=== PATIENT | male | born 1960 | race Caucasian/White ===

== ENCOUNTER 2017-04-24 14:22 | Emergency (ER) | payer SELFPAY ==
[2012-08-28 13:09] VITALS: BP 130/83
== END 2017-04-24 15:51 | disposition left against medical advice (07) ==
LOC: ED 14:22
DX: Z53.9 Procedure and treatment not carried out, unspecified reason (principal)

== ENCOUNTER 2020-02-09 13:56 | Emergency (ER) | payer OTHER ==
[2020-02-09] MEDS ORDERED: TORAdol 30 mg Injection IM ONE (14:12)
[2020-02-09] MEDS ORDERED: Norflex 60 MG/2 ML IM ONE (14:12)
[2020-02-09 14:15] VITALS: BP 166/88; PULSE 88; O2SAT 99
--- NOTE | 2020-02-09 14:18 | ERPHSYRPT ---
- History of Present Illness Time Seen by Provider: 02/09/20 14:15 Source: patient Exam Limitations: no limitations Physician History: Pain in both side of neck radiation to left side first and now it is toward right side of upper extremity Timing/Duration: yesterday Severity: mild Modifying Factors: Improves With: cold therapy Associated Symptoms: denies symptoms Allergies/Adverse Reactions: No Known Drug Allergies Allergy (Verified 05/04/16 04:00) Home Medications: Hydrocodone/APAP 10/325 mg [[place] 10/325 MG Tablet] 1 tab PO Q6HPRN PRN [History] Loratadine 10 mg [Claritin 10 mg] 10 mg PO DAILY 05/04/16 [History] Omeprazole 20 MG [Prilosec 20 mg] 20 mg PO DAILY 05/04/16 [History] lisinopriL [Lisinopril] 10 mg PO DAILY 05/04/16 [History] Fluticasone Propionate [Flonase NASAL] 16 gm NS .PRN 05/16/16 [History] Omeprazole 40 mg PO DAILY 05/16/16 [History] Hx Tetanus, Diphtheria Vaccination/Date Given: Yes Hx Influenza Vaccination/Date Given: Yes Hx Pneumococcal Vaccination/Date Given: No Travel Risk - International Travel Have you traveled outside of the country in past 3 weeks: No Have you or anyone close to you been diagnosed with or: No Do your reside in a community with a known COVID-19 case?: No - Coronavirus Screening Has patient experienced Coronavirus symptoms: No - Review of Systems Constitutional: No Fever, No Chills Eyes: No Symptoms Ears, Nose, & Throat: No Symptoms Respiratory: No Cough, No Dyspnea Cardiac: No Chest Pain, No Edema, No Syncope Abdominal/Gastrointestinal: No Abdominal Pain, No Nausea, No Vomiting, No Diarrhea Genitourinary Symptoms: No Dysuria Musculoskeletal: Neck Pain, No Back Pain Skin: No Rash Neurological: No Dizziness, No Focal Weakness, No Sensory Changes Psychological: No Symptoms Endocrine: No Symptoms All Other Systems: Reviewed and Negative - Past Medical History Pertinent Past Medical History: Yes Neurological History: No Pertinent History ENT History: No Pertinent History Cardiac History: Hypertension Respiratory History: No Pertinent History Endocrine Medical History: Hypothyroidism Musculoskeletal History: Osteoarthritis GI Medical History: GERD History: Other Psycho-Social History: Anxiety Male Reproductive Disorders: No Pertinent History Other Medical History: Back pain - Past Surgical History Past Surgical History: No Neuro Surgical History: No Pertinent History Cardiac: No Pertinent History Respiratory: No Pertinent History Gastrointestinal: No Pertinent History Genitourinary: No Pertinent History Musculoskeletal: No Pertinent History Male Surgical History: No Pertinent History Other Surgical History: CYST REMVOED FROM HEAD - Social History Smoking Status: Never smoker Exposure to second hand smoke: No Drug Use: none Patient Lives Alone: No - Nursing Vital Signs Nursing Vital Signs: Initial Vital Signs Temperature 98 F 02/09/20 14:02 Pulse Rate 88 02/09/20 14:02 Respiratory Rate 20 02/09/20 14:02 Blood Pressure 166/88 02/09/20 14:02 O2 Sat by Pulse Oximetry 99 02/09/20 14:02 Pain Scale Pain Intensity 8 - Physical Exam General Appearance: no apparent distress, alert Eye Exam: PERRL/EOMI, eyes nml inspection Ears, Nose, Throat Exam: normal ENT inspection, TMs normal, pharynx normal, moist mucous membranes Neck Exam: normal inspection, non-tender, supple, full range of motion Respiratory Exam: normal breath sounds, lungs clear, No respiratory distress Cardiovascular Exam: regular rate/rhythm, normal heart sounds, normal peripheral pulses Gastrointestinal/Abdomen Exam: soft, normal bowel sounds, No tenderness, No mass Back Exam: normal inspection, normal range of motion, muscle spasm (neck area), No CVA tenderness, No vertebral tenderness Extremity Exam: normal inspection, normal range of motion, pelvis stable Neurologic Exam: alert, oriented x 3, cooperative, normal mood/affect, nml cerebellar function, nml station & gait, sensation nml, No motor deficits Skin Exam: normal color, warm, dry, No rash Lymphatic Exam: No adenopathy - Course Nursing assessment & vital signs reviewed: Yes Ordered Tests: Medication Summary Discontinued Medications Generic Name Dose Route Start Last Admin Trade Name Freq PRN Reason Stop Dose Admin Ketorolac Tromethamine 60 mg 02/09/20 14:12 Toradol 30 Mg Injection IM 02/09/20 14:13 STAT ONE Orphenadrine Citrate 60 mg 02/09/20 14:12 Norflex 60 Mg/2 Ml IM 02/09/20 14:13 STAT ONE - Progress Progress: improved, pain not gone completely Counseled pt/family regarding: diagnosis, need for follow-up - Departure Departure Disposition: Home Clinical Impression: Neck muscle strain Qualifiers: Encounter type: initial encounter Qualified Code(s): S16.1XXA - Strain of muscle, fascia and tendon at neck level, initial encounter Condition: Stable Critical Care Time: No Referrals: ANNIKA SNYDER [Primary Care Provider] - Instructions: Cervical Muscle Strain (DC), Generalized Neck Pain (DC) Additional Instructions: Discharge/Care Plan JONNA BOBBY was seen on 02/09/20 in the Emergency Room. The patient was counseled regarding Diagnosis,Lab results, Imaging studies, need for follow up and when to return to the Emergency Room. Prescriptions given: Discharge Note I have spoken with the patient and/or caregivers. I have explained the patient' s condition, diagnosis and treatment plan based on the information available to me at this time. I have answered the patient's and/or caregiver's questions and addressed any concerns. The patient and/or caregivers have as good understanding of the patient's diagnosis, condition and treatment plan as can be expected at this point. The vital signs have been stable. The patient's condition is stable and appropriate for discharge from the emergency department. The patient will pursue further outpatient evaluation with the primary care physician or other designated or consulting physician as outlined in the discharge instructions. The patient and/or caregivers are agreeable to this plan of care and follow-up instructions have been explained in detail. The patient and/or caregivers have received these instruction. The patient/and or caregivers are aware that any significant change in condition or worsening of symptoms should prompt an immediate return to this or the closest emergency department or call 911. Prescriptions: Cyclobenzaprine HCl 10 mg [Flexeril 10 MG] 10 mg PO TID #30 tablet Naproxen 375 mg [Naprosyn 375 mg] 375 mg PO Q8H #30 tablet
[2020-02-09] MEDS ORDERED: Norflex 60 MG/2 ML ONE (14:19)
[2020-02-09] MEDS ORDERED: TORAdol 30 mg Injection ONE (14:19)
== END 2020-02-09 14:51 | disposition home or self-care (01) ==
LOC: ED 13:56
DX: S16.1XXA Strain of muscle, fascia and tendon at neck level, initial encounter (principal); I10 Essential (primary) hypertension; E03.9 Hypothyroidism, unspecified; M19.90 Unspecified osteoarthritis, unspecified site; K21.9 Gastro-esophageal reflux disease without esophagitis
CPT/HCPCS: 96372; 99283; J1885; J2360

== ENCOUNTER 2020-09-12 13:52 | Emergency (ER) | payer OTHER ==
--- NOTE | 2020-09-12 13:56 | ERPHSYRPT ---
- History of Present Illness Time Seen by Provider: 09/12/20 13:56 Source: patient, family Exam Limitations: no limitations Physician History: This is a 60-year-old white male who has a history of osteoarthritis and recurrent back and neck pain. A few days ago, patient states that he nearly fell but did not fall and hit his head or neck but it kirstin his neck. The pain has progressively worsened. Pain was in the left neck area and has now moved and includes the right posterior lateral neck. Heat has helped but is only temporary. Earlier this morning the patient took tramadol and ibuprofen and it did not seem to help him. He also too a 10 mg Flexeril earlier today. Patient denies chest pain, he denies shortness of air and he denies abdominal pain. He does not have a headache and does not have any visual changes. Timing/Duration: day(s) (Few) Method of Injury: near fall (A few days ago) Quality: aching Severity of Pain-Max: moderate Severity of Pain-Current: moderate Modifying Factors: Improves With: movement Associated Symptoms: other (Neck pain), No dizziness, No numbness in legs/feet Previous symptoms: same symptoms as today Allergies/Adverse Reactions: No Known Drug Allergies Allergy (Verified 09/12/20 14:05) Home Medications: Loratadine 10 mg [Claritin 10 mg] 10 mg PO DAILY 05/04/16 [History] Omeprazole 20 MG [Prilosec 20 mg] 20 mg PO DAILY 05/04/16 [History] lisinopriL [Lisinopril] 10 mg PO DAILY 05/04/16 [History] Fluticasone Propionate [Flonase NASAL] 16 gm NS .PRN 05/16/16 [History] Hx Tetanus, Diphtheria Vaccination/Date Given: Yes Hx Influenza Vaccination/Date Given: Yes Hx Pneumococcal Vaccination/Date Given: No Travel Risk - International Travel Have you traveled outside of the country in past 3 weeks: No - Coronavirus Screening Are you exhibiting any of the following symptoms?: No Close contact with a COVID-19 positive Pt in past 14-21 Days: No - Review of Systems Constitutional: No Symptoms Eyes: No Symptoms Ears, Nose, & Throat: No Symptoms Respiratory: No Symptoms Cardiac: No Symptoms Abdominal/Gastrointestinal: No Symptoms Genitourinary Symptoms: No Symptoms Musculoskeletal: Neck Pain Skin: No Symptoms Neurological: No Symptoms Psychological: No Symptoms Endocrine: No Symptoms Hematologic/Lymphatic: No Symptoms Immunological/Allergic: No Symptoms All Other Systems: Reviewed and Negative - Past Medical History Pertinent Past Medical History: Yes Neurological History: No Pertinent History ENT History: No Pertinent History Cardiac History: Hypertension Respiratory History: No Pertinent History Endocrine Medical History: Hypothyroidism Musculoskeletal History: Osteoarthritis GI Medical History: GERD History: Other Psycho-Social History: Anxiety Male Reproductive Disorders: No Pertinent History Other Medical History: Back pain - Past Surgical History Past Surgical History: No Neuro Surgical History: No Pertinent History Cardiac: No Pertinent History Respiratory: No Pertinent History Gastrointestinal: No Pertinent History Genitourinary: No Pertinent History Musculoskeletal: No Pertinent History Male Surgical History: No Pertinent History Other Surgical History: CYST REMVOED FROM HEAD - Social History Smoking Status: Never smoker Exposure to second hand smoke: No Drug Use: none Patient Lives Alone: No - Nursing Vital Signs Nursing Vital Signs: Initial Vital Signs Pulse Rate 99 H 09/12/20 14:09 Respiratory Rate 18 09/12/20 14:09 Blood Pressure 140/95 09/12/20 14:09 O2 Sat by Pulse Oximetry 99 09/12/20 14:09 Pain Scale Pain Intensity 9 - Physical Exam General Appearance: mild distress, alert, anxiety Eye Exam: PERRL/EOMI, eyes nml inspection Ears, Nose, Throat Exam: normal ENT inspection, moist mucous membranes Neck Exam: normal inspection, limited range of motion, other (Bilateral paraspinous muscle tenderness.) Respiratory Exam: airway intact, No chest tenderness, No respiratory distress Gastrointestinal Exam: No tenderness Rectal Exam: No not done Back Exam: normal inspection, normal range of motion, muscle spasm (Neck bilateral paraspinous muscles), No CVA tenderness, No vertebral tenderness Extremity Exam: normal inspection, normal range of motion, pelvis stable Neurologic Exam: alert, oriented x 3, cooperative, 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 Stop your ibuprofen and naproxen. Stop your Flexeril/cyclobenzaprine. Follow-up with your prescribing physician on Monday, September 14 for further management of your pain Prescriptions: Carisoprodol 350 mg [Soma 350 mg] 350 mg PO Q8H PRN PRN #6 tablet PRN Reason: Muscle Spasms Prednisone 10 mg [Deltasone 10 mg] 10 mg PO TID #12 tablet
[2020-09-12] MEDS ORDERED: Phenergan 25 MG INJ IM ONE (14:15)
[2020-09-12] MEDS ORDERED: Hydromorphone 1 mg/ml Injection IM ONE (14:15)
[2020-09-12] MEDS ORDERED: solu-MEDROL 125 MG IM ONE (14:17)
[2020-09-12] MEDS ORDERED: Ativan 2 MG/1 ML VIAL IM ONE (14:18)
[2020-09-12] MEDS ORDERED: Phenergan 25 MG INJ ONE (14:22)
[2020-09-12] MEDS ORDERED: Ativan 2 MG/1 ML VIAL ONE (14:23)
[2020-09-12] MEDS ORDERED: solu-MEDROL 125 MG ONE (14:23)
[2020-09-12] MEDS ORDERED: Hydromorphone 1 mg/ml Injection ONE (14:23)
[2020-09-12 14:24] VITALS: BP 140/95
[2020-09-12 15:01] VITALS: PULSE 82; O2SAT 97
== END 2020-09-12 14:58 | disposition home or self-care (01) ==
LOC: ED 13:52
DX: M62.838 Other muscle spasm (principal); M54.9 Dorsalgia, unspecified; M54.2 Cervicalgia; Z79.899 Other long term (current) drug therapy
CPT/HCPCS: 96372; 99284; J1170; J2060; J2550; J2930

== ENCOUNTER 2022-02-03 02:52 | Emergency (ER) | payer OTHER ==
--- NOTE | 2022-02-03 03:34 | ERPHSYRPT ---
- History of Present Illness Time Seen by Provider: 02/03/22 03:15 Source: patient Exam Limitations: no limitations Patient Subjective Stated Complaint: pt states he has been having pain in his lt hand for last several days. denies any injury Triage Nursing Assessment: pt alert and oreinted, answers questions approp. pt ambulatory with steady gait noted. respirations nonlabored. skin warm and dry. pt restless in bed. cap refill and radial pulse to lt hand wnl. Physician History: Patient is a 61-year-old male presents to emergency department for evaluation of left hand pain. Patient states left hand pain started approximately 3 days ago. Hand pain is gotten progressively worse. Patient states that his pain kept him from sleeping this evening. Pain described as a diffuse ache of the left hand. No obvious trauma. Patient states he has a history of arthritis. Patient states he had similar pain at his right hand which was due to arthritis. Patient states that the hand pain resolved with a steroid injection. Symptoms are progressive. Symptoms are moderate in intensity. Movement palpation to the volar and dorsal aspect of the left wrist reproduce symptoms. Patient voices no complaints or concerns at this time. Occurred: other (Pain started 3 days ago.) Quality: constant Severity of Pain-Max: moderate Severity of Pain-Current: mild Extremities Pain Location: hand: left Modifying Factors: Improves With: movement Associated Symptoms: none Allergies/Adverse Reactions: No Known Drug Allergies Allergy (Verified 02/03/22 03:11) Home Medications: Omeprazole 20 MG [Prilosec 20 mg] 20 mg PO BID 05/04/16 [History] Levothyroxine Sodium [Euthyrox] 25 mcg PO DAILY 02/03/22 [History] Tizanidine HCl 4 mg [Zanaflex 4 MG] 4 mg PO TID 02/03/22 [History] Tramadol HCl 50 mg [Ultram 50 mg] 50 mg PO Q8HPRN PRN 02/03/22 [History] Hx Tetanus, Diphtheria Vaccination/Date Given: Yes Hx Influenza Vaccination/Date Given: No Hx Pneumococcal Vaccination/Date Given: No Immunizations Up to Date: Yes Travel Risk - International Travel Have you traveled outside of the country in past 3 weeks: No - Coronavirus Screening Are you exhibiting any of the following symptoms?: No Close contact with a COVID-19 positive Pt in past 14-21 Days: No - Vaccine Status Have you recieved a Covid-19 vaccination: No - Review of Systems Constitutional: No Symptoms, No Fever, No Chills Eyes: No Symptoms Ears, Nose, & Throat: No Symptoms Respiratory: No Symptoms, No Cough, No Dyspnea Cardiac: No Symptoms, No Chest Pain, No Edema, No Syncope Abdominal/Gastrointestinal: No Symptoms, No Abdominal Pain, No Nausea, No Vomiting, No Diarrhea Genitourinary Symptoms: No Symptoms, No Dysuria Musculoskeletal: No Symptoms, No Back Pain, No Neck Pain Skin: No Symptoms, No Rash Neurological: No Symptoms, No Dizziness, No Focal Weakness, No Sensory Changes Psychological: No Symptoms Endocrine: No Symptoms Hematologic/Lymphatic: No Symptoms Immunological/Allergic: No Symptoms All Other Systems: Reviewed and Negative - Past Medical History Pertinent Past Medical History: Yes Neurological History: No Pertinent History ENT History: No Pertinent History Cardiac History: Hypertension Respiratory History: No Pertinent History Endocrine Medical History: Hypothyroidism Musculoskeletal History: Osteoarthritis GI Medical History: GERD History: Other Psycho-Social History: Anxiety Male Reproductive Disorders: No Pertinent History Other Medical History: Back pain - Past Surgical History Past Surgical History: Yes Neuro Surgical History: No Pertinent History Cardiac: No Pertinent History Respiratory: No Pertinent History Gastrointestinal: Appendectomy Genitourinary: No Pertinent History Musculoskeletal: No Pertinent History Male Surgical History: No Pertinent History Other Surgical History: CYST REMVOED FROM HEAD - Social History Smoking Status: Never smoker Exposure to second hand smoke: Yes Drug Use: none Patient Lives Alone: No - Nursing Vital Signs Nursing Vital Signs: Initial Vital Signs Temperature 98.0 F 02/03/22 03:02 Pulse Rate 79 02/03/22 03:02 Respiratory Rate 18 02/03/22 03:02 Blood Pressure 145/81 02/03/22 03:02 O2 Sat by Pulse Oximetry 99 02/03/22 03:02 Pain Scale Pain Intensity 4 - Physical Exam General Appearance: no apparent distress, alert Eyes, Ears, Nose, Throat Exam: moist mucous membranes Neck Exam: non-tender, supple Cardiovascular/Respiratory Exam: chest non-tender, normal breath sounds, regular rate/rhythm, no respiratory distress Abdominal Exam: non-tender, No guarding Back Exam: normal inspection, No vertebral tenderness Shoulder Exam: normal inspection, non-tender, no evidence of injury, normal ROM Elbow/Forearm Exam: normal inspection, non-tender, no evidence of injury, normal ROM Wrist Exam: limited ROM (Hand and digits appear pale. They are cool to touch versus the contralateral side. Delayed capillary refill.), soft tissue tend erness, swelling Hand Exam: soft tissue tenderness, No normal inspection Neuro/Tendon Exam: normal sensation, normal motor functions, normal tendon fu nctions Mental Status Exam: alert, oriented x 3, cooperative Skin Exam: normal color, warm, dry SpO2 Interpretation: normal SpO2: 99 O2 Delivery: Room Air - Course Nursing assessment & vital signs reviewed: Yes EKG Interpreted by Me: RATE (86), Sinus Rhythm, NORMAL AXIS, NORMAL INTERVALS - Radiology Exams Hand X-ray Interpretation: Interpreted by me (No fractures or dislocations. Arthritic/degenerative changes observed. No soft tissue abnormalities.) - CT Exams Upper Extremity CT Interpretation: Tele-radiologist Report (No proximal arterial occlusion or significant stenosis. Evaluation of distal arterial branches is limited by caliber and venous contamination without obvious occlusion.) Ordered Tests: Active Orders 24 hr Category Date Time Status [employer] STAT Care 02/03/22 03:56 Active EKG-ER Only STAT Care 02/03/22 03:55 Active IV Insertion STAT Care 02/03/22 03:55 Active Pulse Oximetry (ED) STAT Care 02/03/22 03:55 Active CTA UPPER EXTREMITY W/CONTRAST [CT] Stat Exams 02/03/22 04:14 Taken HAND (MINIMUM 3 VIEWS) Stat Exams 02/03/22 04:18 Taken CBC W DIFF Stat Lab 02/03/22 04:16 Completed CK-Creatinine Phosphokinase Stat Lab 02/03/22 04:16 Completed CMP Stat Lab 02/03/22 04:16 Completed TROPONIN Q3H Lab 02/03/22 04:16 Completed TROPONIN Q3H Lab 02/03/22 07:00 Ordered TROPONIN Q3H Lab 02/03/22 10:00 Ordered TROPONIN Q3H Lab 02/03/22 13:00 Ordered TROPONIN Q3H Lab 02/03/22 16:00 Ordered UA W/RFX UR CULTURE Stat Lab 02/03/22 05:18 Completed Medication Summary Discontinued Medications Generic Name Dose Route Start Last Admin Trade Name Freq PRN Reason Stop Dose Admin Morphine Sulfate 4 mg 02/03/22 04:11 02/03/22 04:16 Morphine Sulfate 4 Mg/Ml Injection IV 02/03/22 04:12 4 mg STAT ONE Administration Morphine Sulfate Confirm 02/03/22 04:14 Morphine Sulfate 4 Mg/Ml Injection Administered 02/03/22 04:15 Dose 4 mg .ROUTE .STK-MED ONE Lab/Rad Data: Laboratory Result Diagrams 02/03/22 04:16 02/03/22 04:16 Laboratory Results 02/03/22 02/03/22 02/03/22 Range/Units 05:18 04:16 04:16 WBC (4.0-10.5) K/mm3 RBC (4.1-5.6) M/mm3 Hgb (12.5-18.0) gm/dl Hct (42-50) % MCV (78-100) fl MCH (26-32) pg MCHC (32-36) g/dl RDW (11.5-14.0) % Plt Count (150-450) K/mm3 MPV (7.5-11.0) fl Gran % (36.0-66.0) % Eos # (Auto) (0-0.5) Absolute Lymphs (auto) (1.0-4.6) Absolute Monos (auto) (0.0-1.3) Lymphocytes % (24.0-44.0) % Monocytes % (0.0-12.0) % Eosinophils % (0.00-5.0) % Basophils % (0.0-0.4) % Absolute Granulocytes (1.4-6.9) Basophils # (0-0.4) Sodium 132 L (137-145) mmol/L Potassium 3.8 (3.5-5.1) mmol/L Chloride 101 (98-107) mmol/L Carbon Dioxide 23 (22-30) mmol/L Anion Gap 12.4 (5-15) MEQ/L BUN 9 (9-20) mg/dL Creatinine 0.92 (0.66-1.25) mg/dL Estimated GFR > 60.0 ML/MIN Glucose 146 H (74-106) mg/dL Calcium 9.1 (8.4-10.2) mg/dL Total Bilirubin 0.60 (0.2-1.3) mg/dL AST 22 (17-59) U/L ALT 18 (0-50) U/L Alkaline Phosphatase 99 (38-126) U/L Creatine Kinase 72 (55-170) U/L Troponin I < 0.012 (0.000-0.034) ng/mL Serum Total Protein 6.7 (6.3-8.2) g/dL Albumin 3.9 (3.5-5.0) g/dL Urine Color YELLOW (YELLOW) Urine Appearance CLEAR (CLEAR) Urine pH 5.0 (5-6) Ur Specific [place] 1.027 (1.005-1.025) Urine Protein NEGATIVE (Negative) Urine Ketones NEGATIVE (NEGATIVE) Urine Blood NEGATIVE (0-5) Connor/ul Urine Nitrite NEGATIVE (NEGATIVE) Urine Bilirubin NEGATIVE (NEGATIVE) Urine Urobilinogen NEGATIVE (0-1) mg/dL Ur Leukocyte Esterase NEGATIVE (NEGATIVE) Urine WBC (Auto) NONE (0-5) /HPF Urine RBC (Auto) NONE (0-2) /HPF U Epithel Cells (Auto) NONE (FEW) /HPF Urine Bacteria (Auto) NONE SEEN (NEGATIVE) /HPF Urine Mucus (Auto) SLIGHT (NEGATIVE) /HPF Urine Culture Reflexed NO (NO) Urine Glucose NEGATIVE (NEGATIVE) mg/dL 02/03/22 Range/Units 04:16 WBC 8.7 (4.0-10.5) K/mm3 RBC 4.72 (4.1-5.6) M/mm3 Hgb 13.9 (12.5-18.0) gm/dl Hct 41.4 L (42-50) % MCV 87.7 (78-100) fl MCH 29.4 (26-32) pg MCHC 33.6 (32-36) g/dl RDW 13.2 (11.5-14.0) % Plt Count 211 (150-450) K/mm3 MPV 10.0 (7.5-11.0) fl Gran % 69.3 H (36.0-66.0) % Eos # (Auto) 0.30 (0-0.5) Absolute Lymphs (auto) 1.71 (1.0-4.6) Absolute Monos (auto) 0.65 (0.0-1.3) Lymphocytes % 19.6 L (24.0-44.0) % Monocytes % 7.5 (0.0-12.0) % Eosinophils % 3.4 (0.00-5.0) % Basophils % 0.2 (0.0-0.4) % Absolute Granulocytes 6.03 (1.4-6.9) Basophils # 0.02 (0-0.4) Sodium (137-145) mmol/L Potassium (3.5-5.1) mmol/L Chloride (98-107) mmol/L Carbon Dioxide (22-30) mmol/L Anion Gap (5-15) MEQ/L BUN (9-20) mg/dL Creatinine (0.66-1.25) mg/dL Estimated GFR ML/MIN Glucose (74-106) mg/dL Calcium (8.4-10.2) mg/dL Total Bilirubin (0.2-1.3) mg/dL AST (17-59) U/L ALT (0-50) U/L Alkaline Phosphatase (38-126) U/L Creatine Kinase (55-170) U/L Troponin I (0.000-0.034) ng/mL Serum Total Protein (6.3-8.2) g/dL Albumin (3.5-5.0) g/dL Urine Color (YELLOW) Urine Appearance (CLEAR) Urine pH (5-6) Ur Specific [place] (1.005-1.025) Urine Protein (Negative) Urine Ketones (NEGATIVE) Urine Blood (0-5) Connor/ul Urine Nitrite (NEGATIVE) Urine Bilirubin (NEGATIVE) Urine Urobilinogen (0-1) mg/dL Ur Leukocyte Esterase (NEGATIVE) Urine WBC (Auto) (0-5) /HPF Urine RBC (Auto) (0-2) /HPF U Epithel Cells (Auto) (FEW) /HPF Urine Bacteria (Auto) (NEGATIVE) /HPF Urine Mucus (Auto) (NEGATIVE) /HPF Urine Culture Reflexed (NO) Urine Glucose (NEGATIVE) mg/dL - Progress Progress: improved Progress Note: Case discussed with Dr. [facility] who adv[facility] a CT angio of the upper extremity to determine there is circulation compromise of the upper extremity versus a lesion distal in the hand. It is unclear whether or not this will require hand surgery versus vascular. Labs pending. CTA ordered. 02/03/22 04:12 CTA of the upper extremity from the aortic arch to the distal upper extremity does not reveal any significant stenosis or occlusion. Per If no occlusion is found the case would be hand as opposed to vascular. We spoke to Dr. Sánchez hand surgeon at [facility] who agrees that the pathology is likely in the realm of the hand versus proximal vasculature. Dr. Sánchez accepted transfer to [facility] ED. Dr. Sánchez will see/evaluate patient this morning. 02/03/22 05:[address] Pressley emergency physician at [facility] who accepts transfer on Dr. Sánchez behalf. Plan of care discussed with patient. He agrees to transfer to [facility] ED for further evaluation and treatment. Portions of this note were created with voice recognition technology. There may be grammatical, spelling, punctuation or sound alike errors 02/03/22 06:08 Counseled pt/family regarding: lab results, diagnosis, rad results - Departure Departure Disposition: Transfer Clinical Impression: Circulatory compromise of hand, Wrist pain Condition: Stable Critical Care Time: No Referrals: ANNIKA SNYDER [Primary Care Provider] - Follow up/PCP as directed
[2022-02-03] MEDS ORDERED: MORPHINE SULFATE 4 MG INJ IV ONE (04:11)
[2022-02-03] MEDS ORDERED: MORPHINE SULFATE 4 MG INJ ONE (04:14)
[2022-02-03 04:21] LABS: Absolute Neutrophil Ct (ANC) 6.03 (1.4-6.9); Basophil (Absolute #) 0.02 (0-0.4); Eosinophil % 3.4 % (0.00-5.0); Hematocrit 41.4 % (42-50); Hemoglobin 13.9 gm/dl (12.5-18.0); Lymphocyte (Absolute #) 1.71 (1.0-4.6); Lymphocytes % 19.6 % (24.0-44.0); Mean Cell Volume 87.7 fl (78-100); Mean Corpuscular Hemoglobin 29.4 pg (26-32); Mean Corpuscular Hgb Concent. 33.6 g/dl (32-36); Monocyte (Absolute #) 0.65 (0.0-1.3); Monocytes % 7.5 % (0.0-12.0); Neutrophil % 69.3 % (36.0-66.0); Platelet Count 211 K/mm3 (150-450); Red Blood Count 4.72 M/mm3 (4.1-5.6); Red Cell Distribution Width 13.2 % (11.5-14.0); White Blood Count 8.7 K/mm3 (4.0-10.5)
[2022-02-03 05:35] LABS: Appearance CLEAR (CLEAR); Bilirubin NEGATIVE (NEGATIVE); Blood NEGATIVE Ery/ul (0-5); Glucose NEGATIVE (NEGATIVE); Ketones NEGATIVE (NEGATIVE); Leukocyte Esterase NEGATIVE (NEGATIVE); Mucus SLIGHT /HPF (NEGATIVE); Nitrite NEGATIVE (NEGATIVE); Protein,Urine Dip NEGATIVE (Negative); Specific Gravity 1.027 (1.005-1.025); Urobilinogen NEGATIVE mg/dL (0-1)
[2022-02-03 05:37] LABS: Bacteria NONE SEEN /HPF (NEGATIVE)
[2022-02-03 05:50] VITALS: O2SAT 99
[2022-02-03 05:51] LABS: ALBUMIN 3.9 g/dL (3.5-5.0); ALKALINE PHOSPHATASE 99 U/L (38-126); ANION GAP 12.4 MEQ/L (5-15); BLOOD UREA NITROGEN 9 mg/dL (9-20); CHLORIDE 101 mmol/L (98-107); CK-Creatinine Phosphokinase 72 U/L (55-170); Calcium 9.1 mg/dL (8.4-10.2); Carbon Dioxide 23 mmol/L (22-30); Creatinine 1 0.92 mg/dL (0.66-1.25); EST GLOMERULAR FILTRATION RATE > 60.0 ML/MIN; Glucose 146 mg/dL (74-106); Potassium 3.8 mmol/L (3.5-5.1); SGOT/AST 22 U/L (17-59); SGPT/ALT 18 U/L (0-50); SODIUM 132 mmol/L (137-145); Total Protein 6.7 g/dL (6.3-8.2)
[2022-02-03 07:18] VITALS: BP 131/76; PULSE 84
--- NOTE | 2022-02-03 09:02 | XRAY ---
Indication: Pain 3 days. No known injury. Comparison: February 21, 2016. 3 view left hand again demonstrates moderate/advanced degenerative changes 1st metacarpal multangular scaphoid articulation and small spurring head 3rd metacarpal. New multangular scaphoid capitate subcortical cysts presumed degenerative. No other bony, articular, or soft tissue abnormalities.
--- NOTE | 2022-02-03 09:12 | XRAY ---
Indication: Hand/wrist pain 3 days. Cold fingers. No radial pulse. Exam recommended by Dr. Feliberto Vela, thoracic surgeon. Conventional contrast enhanced CTA entire left upper extremity performed using 100 cc Isovue 370 contrast. Two-dimensional sagittal and coronal reformatted images obtained. Additional 3-dimensional reformatted images obtained using a separate workstation. Comparison: None There is suboptimal opacification of the arteries distal to the elbow limiting this level. Visualized aortic arch is normal in course and caliber without aneurysm/dissection. Normal widely patent branching right brachiocephalic, left common carotid, and left subclavian arteries. Normal CTA appearance to the subclavian, axillary, and brachial arteries. Visualized radial and ulnar arteries are suboptimally opacified without focal stricture or obstruction. No acute fracture, dislocation, or suspicious bony lesions. Degenerative changes of the wrist reported on same day hand exam. No suspicious solid/cystic soft tissue mass or abnormal fluid collection. Visualized lungs are clear. No pathologic axillary lymphadenopathy. Impression: 1. Forearm arteries are limited due to suboptimal contrast opacification. 2. Remaining CTA left upper extremity is grossly negative. Comment: Preliminary interpretation made by [facility]. No critical discrepancy.
== END 2022-02-03 07:29 | disposition short-term general hospital (02) ==
LOC: ED 02:52
DX: I99.9 Unspecified disorder of circulatory system (principal); M25.532 Pain in left wrist; M79.642 Pain in left hand; I10 Essential (primary) hypertension; K21.9 Gastro-esophageal reflux disease without esophagitis; Z79.891 Long term (current) use of opiate analgesic; Z79.899 Other long term (current) drug therapy
CPT/HCPCS: 36000; 36415; 73130; 73206; 80053; 81001; 82550; 84484; 85025; 93005; 93041; 94760; 96374; 99285; J2270